=== PATIENT | female | born 2000 | race Caucasian/White ===

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

== ENCOUNTER 2021-11-06 16:48 | Emergency (ER) | payer MEDICAID ==
[~2021-11-06] VITALS: Ht 162.6 cm; Wt 72.6 kg
[2021-11-06 16:50] VITALS: BP 129/87
--- NOTE | 2021-11-06 17:15 | ED GU-Female ---
General Chief Complaint: OB < 20 WEEKS Stated Complaint: ABNORMAL VAGINAL BLEEDING/CLOTS Nursing Triage Note: Patient reports she is approximately 8 weeks , states she has had bloodwork to confirm the , but has not seen her OB or had an ultrasound. She reports she has had spotting for 2-3 days and started having heavier bleeding today. She reports she went to [facility] and had her bloodwork repeated, but will not have the results until Tuesday. She reports abdominal pain rated 7-8/10. Source: patient Exam Limitations: no limitations History of Present Illness Date Seen by Provider: Nov 06, 2021 Time Seen by Provider: 16:56 Initial Comments 20-year-old female G1, P0 coming in due to being and having vaginal bleeding. She believes she is roughly 8 weeks and had a confirmatory test that her regular doctor. Has not seen OB or had an ultrasound as of yet. Has had some spotting for 2 to 3 days and having heavier bleeding with a clots passing earlier today. She has gone through maybe 1 pad today. Had blood work today for her beta-hCG and has an appointment to have it repeated in a couple days. She reports some mild abdominal cramping but no severe pain, no vomiting, diarrhea, weakness, numbness, chest pain, shortness of breath, dysuria, or any other concerns. Allergies and Home Medications Allergies Coded Allergies: No Known Drug Allergies (Unverified , 11/06/21) Patient Home Medication List Home Medication List Reviewed: Yes Review of Systems Review of Systems Constitutional: No fever EENTM: No blurred vision Respiratory: No cough Cardiovascular: No chest pain Gastrointestinal: No vomiting Genitourinary: other (Vaginal bleeding) : Yes Musculoskeletal: no symptoms reported Skin: no symptoms reported Psychiatric/Neurological: No Symptoms Reported Endocrine: No Symptoms Reported Hematologic/Lymphatic: No Symptoms Reported All Other Systemes Reviewed Negative Unless Noted: Yes Past Bexgsjl-Jnqnjl-Tnwhol Hx Patient Social History Tobacco Use?: No Substance use?: No Alcohol Use?: No Pt feels they are or have been: No Past Medical History Surgeries: No Last Menstrual Period: September 08, 2021 Physical Exam Vital Signs Vital Signs - First Documented 11/06/21 16:50 Temp 36.9 Pulse 92 Resp 16 B/P (MAP) 129/87 (101) Pulse Ox 99 O2 Delivery Room Air Capillary Refill : Less Than 3 Seconds Height, Weight, BMI Height: '" Weight: lbs. oz. kg; 27.00 BMI Method: General Appearance: WD/WN, no apparent distress HEENT: PERRL/EOMI, normal ENT inspection, pharynx normal Neck: non-tender, full range of motion, supple, normal inspection Cardiovascular: regular rate, rhythm, no edema, no murmur Respiratory: chest non-tender, lungs clear, normal breath sounds, no respiratory distress, no accessory muscle use Gastrointestinal: normal bowel sounds, non tender, soft; No distended, No guarding, No rebound Back: normal inspection, no CVA tenderness Extremities: normal range of motion, non-tender, normal inspection, no pedal edema, no calf tenderness, normal capillary refill Neurologic/Psychiatric: no motor/sensory deficits, alert, normal mood/affect Skin: normal color, warm/dry Lymphatic: no adenopathy Progress/Results/Core Measures Suspected Sepsis SIRS Temperature: Pulse: 92 Respiratory Rate: 16 Blood Pressure 129 /87 Mean: 101 Results/Orders My Orders Orders - RIZWANA YEUNG MD Urine Bedside (11/06/21 16:56) Vital Signs/I&O 11/06/21 16:50 Temp 36.9 Pulse 92 Resp 16 B/P (MAP) 129/87 (101) Pulse Ox 99 O2 Delivery Room Air Capillary Refill : Less Than 3 Seconds Blood Pressure Mean: 101 Progress Note : Progress Note 20-year-old female with above history coming in due to vaginal bleeding during . ABCs were intact and vitals were stable on presentation. Physical exam reassuring including a soft and nontender abdomen. I did a [id number] ultrasound and there does appear to be an ovum in the uterus but no heart rate seen. I offered the patient a pelvic exam and she would like to forego this at this time given lack of symptoms and she says she would just like to follow-up. I also offered her blood work but she says she would prefer to have this done later. She says if she has significant bleeding or abdominal pain she would come back to the ER. She will follow-up in a couple days for blood work. She was then discharged home in stable condition with strict return precautions. Departure Impression Primary Impression: Threatened miscarriage Disposition: HOME, SELF-CARE Condition: Stable Departure-Patient Inst. Decision time for Depature: 17:14 Referrals: [facility] (PCP) Primary Care Physician SAL TOM APRN (Family) Primary Care Physician Patient Instructions: Bleeding in Early (DC) Add. Discharge Instructions: It is very possible you are having a miscarriage. Please follow-up for the blood work to see if your hormone levels are increasing like they should. If they are going down then its inevitably a miscarriage. If you have more than 1 fully saturate a pad every hour for several hours then I want you to come back to the ER because that is too much bleeding. Take Tylenol as needed for pain. Work/School Note: Work Release Form Date Seen in the Emergency Department: Nov 06, 2021 Return to Work: Nov 07, 2021 Restrictions: No Restrictions RIZWANA YEUNG MD Nov 06, 2021 17:15
== END 2021-11-06 17:20 | disposition home or self-care (01) ==
LOC: EDUNIT# 16:48 → ER FS 16:49
DX: O20.0 Threatened abortion (principal); Z28.310 Unvaccinated for COVID-19; Z3A.08 8 weeks gestation of pregnancy
CPT/HCPCS: 84703; 99282